=== PATIENT | female | born 1975 | race Caucasian/White ===

== ENCOUNTER 2019-04-10 01:11 | Outpatient (CLI) | payer OTHER | END 2019-04-10 01:12 | disposition short-term general hospital (02) | LOC: EMS 01:11 | PROVIDERS: ATTEND Surgery | DX: R07.9 Chest pain, unspecified (principal); M54.2 Cervicalgia | CPT/HCPCS: A0425; A0427 ==

== ENCOUNTER 2020-05-27 13:13 | Outpatient (CLI) | payer OTHER ==
--- NOTE | 2020-05-28 08:18 | Mammography Report ---
BILATERAL DIGITAL SCREENING MAMMOGRAM 3D/2D: 05/27/2020 CLINICAL: Routine screening. Comparison is made to exams dated: 11/17/2017 mammogram and 11/14/2017 mammogram - [facility]. The tissue of both breasts is heterogeneously dense. This may lower the sensitivity of mammogr aphy. No significant masses, calcifications, or other findings are seen in either breast. There has been no significant interval change. IMPRESSION: NEGATIVE There is no mammographic evidence of malignancy. A 1 year screening mammogram is recommended. This exam was interpreted at Station ID: [id number]. NOTE: For mammograms, a report in lay terms will be sent to the patient. Approximately 15% of breast malignancies will not be visualized mammographically. In the management of a palpable breast mass, a negative mammogram must not discourage biopsy of a clinically suspicious lesion. Electronically Signed By: Mark west/payton:05/27/2020 15:55:58 ACR BI-RADS Category 1: Negative 3341F C -Heterogeneously dense 1 Mammogram [id number] 1 year screening B
== END 2020-05-27 13:14 | disposition home or self-care (01) ==
LOC: DI.N 13:13
DX: Z12.31 Encounter for screening mammogram for malignant neoplasm of breast (principal)
CPT/HCPCS: 77063; 77067